=== PATIENT | male | born 1995 | race African-American/Black ===

== ENCOUNTER 2020-01-27 14:31 | Emergency (ER) | payer MEDICAID, SELFPAY ==
[2020-01-27 14:45] VITALS: BP 124/72; PULSE 76; RESP 16; TEMP 35.8; O2SAT 99
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
== END 2020-01-27 15:48 | disposition home or self-care (01) ==
PROVIDERS: Emergency Provider Nurse Practitioner
DX: S61.012A Laceration without foreign body of left thumb without damage to nail, initial encounter (principal); X58.XXXA Exposure to other specified factors, initial encounter; S60.512A Abrasion of left hand, initial encounter
CPT/HCPCS: 12001; 99212; G0463

== ENCOUNTER 2020-03-21 13:28 | Emergency (ER) | payer OTHER, SELFPAY ==
--- NOTE | ~2020-03-21 | XR_ITS ---
EXAMINATION: XR shoulder RT min 2V DATE: 03/21/2020 14:27 INDICATION: Right shoulder pain and limited range of motion post fall TECHNIQUE: AP internally and externally rotated, AP oblique externally rotated, axillary and transsca pular Y views of the right shoulder were obtained. COMPARISON: None FINDINGS: There appears to be slight widening of the right acromioclavicular joint space as well as which measu res approximately 11 mm as well as widening of the coracoclavicular interval which measures approxima tely 17 mm which raises concern for type III acromioclavicular joint separation. Alignment is otherwi se normal. No fracture. Glenohumeral joint is normal. Soft tissues are unremarkable. Visualized righ t lung is clear. IMPRESSION: Suggestion of type III acromioclavicular joint separation. No fracture. Reviewed, dictated and finalized at location A.
[2020-03-21 13:31] VITALS: BP 120/74; PULSE 83; RESP 20; TEMP 36.6; O2SAT 100
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
== END 2020-03-21 15:18 | disposition home or self-care (01) ==
PROVIDERS: Emergency Provider Emergency Medicine
DX: S43.101A Unspecified dislocation of right acromioclavicular joint, initial encounter (principal); Y35.813A Legal intervention involving manhandling, suspect injured, initial encounter
CPT/HCPCS: 73030; 99283; A4565